=== PATIENT | female | born 1970 | race Caucasian/White ===

== ENCOUNTER 2018-09-03 11:39 | Emergency (ER) | payer MEDICAID ==
[2018-09-03 12:10] LABS: #Basophils 0.1 thou/uL (0.0-0.2); #Eosinphils 0.3 thou/uL (0.0-0.7); #Lymphocytes 1.3 thou/uL (1.20-3.40); #Monocytes 0.4 thou/uL (0.11-0.59); #Neutrophils 3.7 thou/uL (1.40-6.50); %Basophils 1.1 % (0.0-1.0); %Eosinophils 4.5 % (0.0-10.0); %Lymphocytes 22.5 % (21.0-51.0); Hemoglobin 15.3 g/dL (12.0-16.0); Mean Corpuscular HGB CONC 33.3 g/dL (32.0-36.0); Mean Corpuscular Hemoglobin 30.4 pg (27.0-31.0); Mean Corpuscular Volume 91.2 fL (78.0-98.0); Mean Platelet Volume 7.2 fL (7.4-10.4); Platelet Count 301 thou/uL (130-400); RBC Distribution Width 11.6 % (11.5-14.5); Red Blood Cell (RBC) Count 5.02 mill/uL (4.20-5.40); White Blood Cell (WBC) Count 5.7 thou/uL (4.8-10.8)
[2018-09-03 12:24] LABS: ALT (SGPT) 23 U/L (8-55); AST (SGOT) 21 U/L (5-34); Albumin 4.5 g/dL (3.5-5.0); Alkaline Phosphatase 72 U/L (40-150); Anion Gap 15 mmol/L (10-20); BUN (Urea Nitrogen) 11 mg/dL (7.0-18.7); Bilirubin, Total 0.5 mg/dL (0.2-1.2); Calc. Creatinine Clearance 0 mL/min (70-130); Calcium 9.7 mg/dL (7.8-10.44); Carbon Dioxide 25 mmol/L (22-29); Chloride 103 mmol/L (98-107); Estimated GFR-MDRD 73; Globulin 3.7 g/dL (2.4-3.5); Glucose 104 mg/dL (70-105); Lipase 46 U/L (8-78); Protein, Total 8.2 g/dL (6.0-8.3); Sodium 139 mmol/L (136-145)
[2018-09-03 12:44] LABS: BHCG - Serum Negative (NEGATIVE); Pregs Control Background? CLEAR/WHITE (CLR/WHITE); Pregs Control Bar Appear? YES (CONTROL BAR)
--- NOTE | 2018-09-03 13:40 | CT ---
CT ABDOMEN AND PELVIS WITH IV CONTRAST: History: Abdomen pain. Nausea. FINDINGS: No comparison. Lung bases are clear. Bilateral breast implants. Tiny nonspecific low density lesion w ithin the lateral segment left liver lobe. Small cysts associated with the cortex of each kidney. No enlarged lymph nodes or free fluid. Lack of oral contrast limits evaluation of the bowel. No evidence of obstruction or inflammation. Uri nary bladder is unremarkable. Degenerative changes lumbar spine. Circumferential wall thickening and low density involving the antrum of the stomach, mild. IMPRESSION: 1. Mild wall thickening of the gastric antrum without adjacent fat stranding. Clinical correlation re garding other signs and symptoms of antral gastritis is required. 2. No other significant abnormalities are demonstrated. POS: [facility]
[2018-09-03] MEDS ORDERED: Dexamethasone 4 mg/ml Vial ONE (14:14)
== END 2018-09-03 14:30 | disposition home or self-care (01) ==
LOC: ERS 11:39
DX: K29.70 Gastritis, unspecified, without bleeding (principal); L30.9 Dermatitis, unspecified; F41.9 Anxiety disorder, unspecified; Z79.899 Other long term (current) drug therapy
CPT/HCPCS: 36415; 74177; 80053; 83690; 84703; 85025; 87040; 93005; 96361; 96374; J1100